=== PATIENT | female | born 1995 | race Two or more races ===

== ENCOUNTER 2021-05-11 23:39 | Emergency (ER) | payer SELFPAY ==
[~2021-05-11] VITALS: Ht 142.2 cm; Wt 46.0 kg
[2021-05-12 02:20] LABS: BASOPHILS % 0.3 % (0.0-2.0); EOSINOPHILS % 1.2 % (0.0-5.0); HEMOGLOBIN. 14.2 g/dL (12.0-16.0); LYMPHOCYTES % 29.3 % (20.0-50.0); MEAN CORPUSCULAR HEMOGLOBIN 28.9 pg (28.0-32.0); MEAN CORPUSCULAR VOLUME 87.6 fL (81.0-99.0); MEAN PLATELET VOLUME 7.4 fl (7.4-10.4); NEUTROPHILS % 62.2 % (40.0-76.0); PLATELET 356 x1000/uL (130-400); RED BLOOD CELL COUNT 4.91 mill/uL (4.2-5.4)
[2021-05-12 02:28] LABS: CHLORIDE 107 mEq/L (98-107)
[2021-05-12 02:37] LABS: HCG SCREEN NEGATIVE
[2021-05-12] MEDS ORDERED: IBUP-2028 MT (04:36)
[2021-05-12 04:42] VITALS: BP 130/71
== END 2021-05-12 04:44 | disposition home or self-care (01) ==
LOC: ER 23:39
DX: M79.604 Pain in right leg (principal)
CPT/HCPCS: 36415; 71045; 80053; 84484; 84703; 85025; 85379; 93005; 93971; 99285